=== PATIENT | female | born 1975 | race Caucasian/White ===

== ENCOUNTER 2016-04-06 05:33 | Inpatient (IN) | payer OTHER ==
[~2016-04-06] VITALS: Ht 162.6 cm; Wt 115.0 kg
[~2016-04-06 05:33] MED LIST: ADVIL200 MG PO; ALEVE220 MG PO; FLEXERIL10 MG PO; KLONOPIN0.5 M1 PO; NAPROSYN500 MG PO; VITAMIN D31000 UNIT PO; ZOLOFT100 MG PO
[2016-04-06 05:59] VITALS: BP 117/68
[2016-04-06 07:11] LABS: POINT-OF-CARE METER ID UU14174212
[2016-04-06 14:07] VITALS: BP 125/65
[2016-04-06 15:48] VITALS: BP 127/72
[2016-04-06 18:14] LABS: POINT-OF-CARE METER ID UU14117124
[2016-04-06 19:20] VITALS: BP 114/62
[2016-04-06 23:48] VITALS: BP 128/69
[2016-04-07 02:23] VITALS: BP 125/59
[2016-04-07 07:00] VITALS: BP 130/65
[2016-04-07 07:34] LABS: HEMATOCRIT 36.9 % (36.0-46.0); MCH 29.2 PG (29.0-34.0); MCHC 33.9 G/DL (30.0-36.0); MCV 86.2 FL (83-99); MEAN PLAT.VOLUME 10.3 uM^3 (9.5-12.4); PLATELET COUNT 282 K/uL (156-360); RBC DIS.WIDTH-CV 13.4 % (11.8-14.6); RBC DIS.WIDTH-SD 42.1 % (39-53); RED BLOOD COUNT 4.28 M/uL (3.80-5.20)
[2016-04-07 07:50] LABS: WHITE BLOOD COUNT 10.6 K/uL (4.1-10.2)
[2016-04-07 08:02] LABS: ANION GAP 9 MEQ/L (2-14); CHLORIDE 103 MEQ/L (99-109); GFR ESTIMATE (CALCULATED) > 59 mL/min/; GLUCOSE 107 mg/dL (70-99); MAGNESIUM 1.9 mg/dl (1.3-2.7); POTASSIUM 4.1 MEQ/L (3.7-5.4); SAMPLE HEMOLYSIS CHECK 0; SAMPLE ICTERIC CHECK 0; SAMPLE LIPEMIA CHECK 0; SODIUM 137 MEQ/L (136-147); UREA NITROGEN (BUN) 11 mg/dL (9-23)
[2016-04-07] MEDS ORDERED: HYDROCODON-ACE1 EAC7 PO (08:16)
[2016-04-07 10:45] VITALS: BP 135/78
[2016-04-07 15:29] VITALS: BP 140/73
== END 2016-04-07 19:41 | disposition home or self-care (01) | DRG 621 ==
LOC: 2SOUTH 05:33 → 2WEST 13:51 → 2SOUTH 16:16 → 2EAST 04-07 10:57
PROVIDERS: Surgery
PROC: 0DB64Z3 Excision of Stomach, Percutaneous Endoscopic Approach, Vertical (ICD-10-PCS; principal; 2016-04-06)
DX: E66.01 Morbid (severe) obesity due to excess calories (principal); F41.9 Anxiety disorder, unspecified; Z68.43 Body mass index [BMI] 50.0-59.9, adult; E78.2 Mixed hyperlipidemia; N31.8 Other neuromuscular dysfunction of bladder; E88.81 Metabolic syndrome and other insulin resistance; E78.00 Pure hypercholesterolemia, unspecified
CPT/HCPCS: 80048; 82948; 83735; 84100; 85027; J0330; J0690; J1100; J1170; J1644; J1650; J1815; J2250; J2270; J2405; J2710; J2765; J3010; J3480; J7120; S0020